=== PATIENT | female | born 1955 ===

== ENCOUNTER 2024-03-29 19:24 | Outpatient (REF) | payer MEDICARE, SELFPAY ==
[2024-03-29 21:24] LABS: Abs Immature Grans 0.01 10^3/uL (0.0-0.06); Absolute Basophil Count 0.05 10^3/uL (0.0-0.2); Absolute Eosinophil Count 0.09 10^3/uL (0.0-0.7); Absolute Lymphocyte Count 2.63 10^3/uL (1.2-3.4); Absolute Neutrophil Count 3.53 10^3/uL (1.2-6.7); Basophils % 0.7 %; Eosinophils % 1.3 %; HCT 39.9 % (36.0-46.0); HGB 13.1 g/dL (11.2-15.7); Immature Grans % 0.1 %; Lymphocytes % 38.6 %; MCH 28.7 pg (27.0-33.0); MCHC 32.8 % (32.0-36.0); MCV 88 fL (80-95); MPV 11.4 fL (8.0-11.0); Monocytes % 7.3 %; Platelet Count 244 10^3/uL (130-400); RBC 4.56 10^6/uL (3.93-5.22); RDW 14.5 % (11.7-14.6); RDW-SD 46.5 fL; WBC 6.81 10^3/uL (4.4-10.8)
[2024-03-29 21:58] LABS: Calcium 9.6 mg/dL (8.5-10.1); Vitamin D 25 Total 30.3 ng/mL (30-100)
== END 2024-03-29 19:25 | disposition home or self-care (01) ==
LOC: NCHCN 19:24
PROVIDERS: Visit Provider Family Medicine
DX: R53.83 Other fatigue (principal); E55.9 Vitamin D deficiency, unspecified; M81.0 Age-related osteoporosis without current pathological fracture
CPT/HCPCS: 82306; 82310; 85025

== ENCOUNTER 2024-04-30 12:18 | Outpatient (REF) | payer MEDICARE, SELFPAY ==
[2024-04-30 14:55] LABS: Anion Gap 5.6 mmol/L (3-11); BUN 14 mg/dL (7-18); CO2 30.4 mmol/L (21.0-32.0); CREATININE 0.8 mg/dL (0.55-1.02); Chloride 104 mmol/L (98-107); Estimated GFR 81.21 (mL/min/1.73m2); Glucose 98 mg/dL (74-106); Sodium 140 mmol/L (136-145)
== END 2024-04-30 12:19 | disposition home or self-care (01) ==
LOC: NCHCN 12:18
PROVIDERS: PCP Family Medicine; Visit Provider Family Medicine
DX: R53.83 Other fatigue (principal); M81.0 Age-related osteoporosis without current pathological fracture; E55.9 Vitamin D deficiency, unspecified
CPT/HCPCS: 80048

== ENCOUNTER 2025-04-03 11:41 | Outpatient (REF) | payer MEDICARE, SELFPAY ==
--- NOTE | 2025-04-03 09:30 | SKI_PTH ---
PATIENT: Maritza Castellano LOC: [facility] U#:[id number] AGE/SX: 69/F ROOM: RE04/03/[address]: Marisela Good : 1955 BED: DIS: 04/03/2025 SPEC #: [id number] RECD: 04/03/25 16:50 STATUS: ANEESH REAc #: [id number] JENNIFER: 04/03/25 09:[address]: Marisela Good DEPT: Surgical Specimen RECD BY: Essie Jean Tissues: 1 - SKIN BIOPSY(SHAVE/PUNCH) Procedures: SKIN LEVEL 4 Comments: [id number]
== END 2025-04-03 11:42 | disposition home or self-care (01) ==
LOC: NCHCN 11:41
PROVIDERS: PCP Family Medicine; Visit Provider Family Medicine
DX: L82.1 Other seborrheic keratosis (principal)
CPT/HCPCS: 88305